=== PATIENT | female | born 1965 | race Caucasian/White ===

== ENCOUNTER 2016-07-13 07:14 | Day surgery (SDC) | payer OTHER ==
[2016-07-13 08:21] LABS: HEMOGLOBIN 13.8 g/dL (12.2-16.2); LYMPH # 1.9 K/mm3 (0.7-4.5); LYMPH % 23.2 % (10-50.0)
[2016-07-13 08:23] LABS: BUN 16 mg/dL (7-18)
[2016-07-13 08:28] LABS: GFR (ESTIMATED) 105 ML/MIN (59-)
--- NOTE | 2016-07-13 12:23 | RADIOLOGY REPORT PS360 ---
CARDIAC CATHETERIZATION DATE OF CATHETERIZATION:07/13/2016 10:32 AM PROCEDURES: 1. Left heart catheterization 2. Left ventriculogram 3. Selective coronary angiogram 4. Stent appointment to the mid dominant right coronary artery 5. FFR to the LAD 6. Stent deployment to the proximal LAD INDICATION FOR TEST: 1. Angina pectoris class IV 2. Coronary artery disease 3. Ischemic response to adenosine in the LAD with an index of 0.71 Informed consent was obtained prior to the procedure. COMPLICATIONS: None ESTIMATED BLOOD LOSS: Less than 10 ml. TECHNIQUE: One percent lidocaine used to anesthetize the right anterior aspect of the wrist. The right radial artery was accessed via the Seldinger technique. A 5 Luxembourger sheath was placed in the right radial artery. 2.5 mg of verapamil and 800 mcg of nitroglycerin were given through the arterial sheath. The Jo Ann catheter was also used to perform left heart catheterization and left ventriculography. At the end of the diagnostic angiogram 12,000 units of heparin was administered intravenously along with 60 mg of by mouth and Effient. The 5 Luxembourger sheath was exchanged for a 6 Luxembourger sheath and 800 mcg of nitroglycerin was administered. The beginning ACT was 299 seconds. An Akari right eye catheter was used intubate the right coronary artery and a BMW wire was used to traverse the stenosis. A 3 mm x 12 mm resolute stent was deployed at 16 keith however there was a partial geographical miss and I did not get the entire stenotic lesion. Because of this an additional 3 mm x 9 mm resolute stent was then placed proximal to the first stent yet still overlapping it and deployed at 17 keith. This time the stent was placed perfectly with complete reduction of the stenosis and no encroachment or impingement on the large RV marginal branch. ABELARDO-3 flow was present before and after the procedure. The wire was pulled back and repeat angiography demonstrated wide patency of the right coronary artery. Following this the Akari right catheter was removed and replaced with an Akari left 3.5 guide catheter. 2000 units of heparin was administered intravenously. An FFR wire was normalized in the ascending aorta and the guide catheter was then used to intubate the left main artery. The wire was used to traverse the stenosis in the LAD and FFR immediately dropped to 0.8742 infusion of adenosine. With infusion of adenosine the FFR index dropped to 0.71. Given this was an ischemic response to adenosine a 3.5 x 12 mm resolute stent was deployed at 16 keith in the proximal LAD reducing the hemodynamically severe stenosis to 0%. ABELARDO-3 flow was present before and after the procedure. 800 mcg of nitroglycerin was administered intracoronary after the wire was pulled back. The closing ACT was 286 seconds. The apparatus was removed the sheath was removed good hemostasis was achieved using TR band. At the end of the procedure the patient was transferred to the post-op holding area in stable condition for arterial sheath removal. ANGIOGRAPHIC RESULTS: 1. The left main artery normal 2. The left anterior descending artery proximal 50-70% stenosis followed by a 30% mid vessel stenosis 3. The circumflex artery is nondominant and normal 4. The right coronary artery is a dominant vessel and has mild 10-20% proximal stenosis followed by a concentric 70-80% stenosis immediately distal to a large RV marginal branch. Distally the posterior descending artery is widely patent in a large vessel 5. The NOLAN ventriculogram reveals normal ejection fraction estimated at 65% 6. The left ventricular end-diastolic pressure is 10 mmHg IMPRESSION: 1. Severe 2 vessel coronary artery disease as described above 2. Severe disease in the mid dominant right coronary artery followed by stenting of the mid right coronary artery severe disease reduced to 0% with 2 drug-eluting stents as described above 3. Angiographically indeterminate yet hemodynamically severe proximal LAD disease 4. Successful stenting of the proximal LAD hemodynamically severe disease reduced to 0% with 1 drug-eluting stent 5. Normal ejection fraction 6. Normal left ventricular end-diastolic pressure PLAN: 1. Effient and aspirin 2. LDL less than 70 with high-dose a portable statin 3. Risk factor modification
[2016-07-13 15:45] VITALS: BP 142/85
== END 2016-07-13 15:25 | disposition home or self-care (01) ==
LOC: CATHLAB 07:14
PROVIDERS: Internal Medicine
PROC: B2111ZZ Fluoroscopy of Multiple Coronary Arteries using Low Osmolar Contrast (ICD-10-PCS; 2016-07-13)
PROC: B2151ZZ Fluoroscopy of Left Heart using Low Osmolar Contrast (ICD-10-PCS; 2016-07-13)
PROC: 4A033BC Measurement of Arterial Pressure, Coronary, Percutaneous Approach (ICD-10-PCS; 2016-07-13)
PROC: 027135Z Dilation of Coronary Artery, Two Arteries with Two Drug-eluting Intraluminal Devices, Percutaneous Approach (ICD-10-PCS; 2016-07-13)
PROC: 4A023N7 Measurement of Cardiac Sampling and Pressure, Left Heart, Percutaneous Approach (ICD-10-PCS; principal; 2016-07-13 08:30)
DX: I25.119 Atherosclerotic heart disease of native coronary artery with unspecified angina pectoris (principal); I25.82 Chronic total occlusion of coronary artery
CPT/HCPCS: C1725; C1769; C1876; C1887; C1894; J1644; Q9967